=== PATIENT | female | born 1980 | race Caucasian/White ===

== ENCOUNTER 2018-01-02 01:53 | Emergency (ER) | payer OTHER ==
[2018-01-02] MEDS ORDERED: Acetaminophen/HYDROcodone 325-5 MG Tab PO ONE (02:15)
--- NOTE | 2018-01-02 02:19 | EDM.PDOC ---
ED HPI GENERAL MEDICAL PROBLEM - General Chief Complaint: Upper Extremity Injury/Pain Stated Complaint: SHOULDER PAIN Time Seen by Provider: 01/02/18 02:03 Source of Information: Reports: Patient, Family History Limitations: Reports: No Limitations - History of Present Illness INITIAL COMMENTS - FREE TEXT/NARRATIVE: This is a 37-year-old female. She comes to the ER [facility] because she is having left shoulder pain that she can't tolerate. Apparently she is moving sure she is been lifting these heavy totes for the last couple of days and now her left shoulder is killing her. She has a history of bursitis and tendinitis in the left shoulder. She has been trying to sleep this evening but the shoulder keeps waking her up. She has no history of trauma to the shoulder she is never seen in the supplier specialist for her shoulder and she's had no history of an MRI of her left shoulder. He denies any other acute symptoms other than her right shoulder is aching as well but not as bad as her left shoulder. She has a history of left carpal tunnel symptoms as well as left thumb trigger finger. Left Shoulder Pain Score (Numeric/FACES): 10 - Related Data Allergies Allergy/AdvReac Type Severity Reaction Status Date / Time No Known Allergies Allergy Verified 01/02/18 02:02 Home Meds: Home Meds . [No Known Home Meds] 01/02/18 [History] Past Medical History - Past Health History Medical/Surgical History: Denies Medical/Surgical History Social & Family History - Tobacco Use Smoking Status *Q: Current Every Day Smoker Years of Tobacco use: 20 Packs/Tins Daily: 0.5 Review of Systems - Review of Systems Review Of Systems: See Below Constitutional: Denies: Chills, Fever Eyes: Reports: No Symptoms Ears: Reports: No Symptoms Nose: Reports: No Symptoms Mouth/Throat: Reports: No Symptoms Respiratory: Denies: Shortness of Breath, Cough Cardiovascular: Denies: Chest Pain GI/Abdominal: Denies: Abdominal Pain Genitourinary: Reports: No Symptoms Musculoskeletal: Reports: Shoulder Pain Skin: Reports: No Symptoms Neurological: Reports: No Symptoms Psychiatric: Reports: No Symptoms ED EXAM, GENERAL - Physical Exam Exam: See Below Exam Limited By: No Limitations General Appearance: Alert, WD/WN, No Apparent Distress Eye Exam: Bilateral Eye: Normal Inspection Ears: Normal External Exam Nose: Normal Inspection Throat/Mouth: Normal Inspection, Normal Lips, Normal Voice, No Airway Compromise Head: Normocephalic Neck: Supple Respiratory/Chest: No Respiratory Distress GI/Abdominal: Non-Tender Back Exam: Full Range of Motion Extremities: Normal Inspection, Other (The patient states she can't really move her shoulder very well consider hurts too much, she has limited anterior and lateral reaching and she will not put her left hand over her shoulder) Neurological: Alert, Oriented Psychiatric: Normal Affect, Normal Mood Skin Exam: Warm, Dry Course - Vital Signs Last Recorded V/S: Last Vital Signs Temp 98.5 F 01/02/18 01:59 Pulse 85 01/02/18 01:59 Resp 18 01/02/18 01:59 BP 112/88 01/02/18 01:59 Pulse Ox 100 01/02/18 01:59 - Orders/Labs/Meds Orders: Active Orders 24 hr Category Date Time Status Shoulder Comp Lt [CR] Stat Exams 01/02/18 02:14 Taken Meds: Medications Discontinued Medications Generic Name Dose Route Start Last Admin Trade Name Lorena PRN Reason Stop Dose Admin Hydrocodone Bitart/Acetaminophen 1 tab 01/02/18 02:15 01/02/18 02:22 [place] 325-5 Mg PO 01/02/18 02:16 1 tab ONETIME ONE Administration - Radiology Interpretation Free Text/Narrative:: X-ray of the left shoulder does not reveal any acute bony changes - Re-Assessments/Exams Free Text/Narrative Re-Assessment/Exam: 01/02/18 03:22 I spoke to the patient regarding her x-ray results. I'm going to refer her to Dr. Diaz for her left shoulder symptoms or she can follow-up with her family doctor and if needed get an MRI as an outpatient. 01/02/18 03:25 The patient's pain is slightly improved since she's been here. I am not going to provide narcotics for this type of pain but suggested some Aleve 2 tablets twice a day and then to follow-up with her physician or Dr. Diaz for further evaluation and treatment. Departure - Departure Time of Disposition: 03:26 Disposition: Home, Self-Care 01 Condition: Fair Clinical Impression: Sprain of left shoulder Qualifiers: Encounter type: initial encounter Shoulder sprain type: unspecified sprain Qualified Code(s): S43.402A - Unspecified sprain of left shoulder joint, initial encounter Left shoulder pain Qualifiers: Chronicity: acute Qualified Code(s): M25.512 - Pain in left shoulder - Discharge Information *PRESCRIPTION DRUG MONITORING PROGRAM REVIEWED*: Not Applicable *COPY OF PRESCRIPTION DRUG MONITORING REPORT IN PATIENT CELY: Not Applicable Referrals: PCP,None [Primary Care Provider] - Forms: ED Department Discharge, ED Return to Work/School Form Additional Instructions: Use an ice pack or heating pad to help with the left shoulder soreness, get some Aleve and take 2 tablets twice a day with food, no more lifting of the tubs or totes until the shoulder pain is better, follow-up with Dr. Diaz for further evaluation and treatment and possibly an MRI of your left shoulder, return to the ER if needed - My Orders Last 24 Hours: My Active Orders 01/02/18 02:14 Shoulder Comp Lt [CR] Stat - Assessment/Plan Last 24 Hours: My Active Orders 01/02/18 02:14 Shoulder Comp Lt [CR] Stat
--- NOTE | 2018-01-03 10:01 | CR ---
Left shoulder: Three views of the left shoulder were obtained. Comparison: No previous study. Glenohumeral and acromioclavicular joints are within normal limits. No fracture or other abnormality is seen. Impression: 1. No abnormality is identified on three-view left shoulder study. Diagnostic code #1
== END 2018-01-02 03:35 | disposition home or self-care (01) ==
LOC: JD.ED 01:53
DX: S43.402A Unspecified sprain of left shoulder joint, initial encounter (principal); F17.210 Nicotine dependence, cigarettes, uncomplicated; X50.0XXA Overexertion from strenuous movement or load, initial encounter
CPT/HCPCS: 73030; 99283; A9270

== ENCOUNTER 2018-03-10 09:37 | Emergency (ER) | payer OTHER ==
[2018-03-10] MEDS ORDERED: Albuterol/Ipratropium 3.0-0.5 MG/3 ML Neb Soln NEB ONE (09:49)
[2018-03-10] MEDS ORDERED: Albuterol/Ipratropium 3.0-0.5 MG/3 ML Neb Soln ONE (09:50)
[2018-03-10] MEDS ORDERED: Sodium Chloride 0.9% 10 ML Syringe FLUSH PRN (09:51)
[2018-03-10] MEDS ORDERED: methylPREDNISolone Sodium Succinate 125 MG/2 ML SDV IVPUSH ONE (09:51)
--- NOTE | 2018-03-10 11:02 | CR ---
Chest: Portable view of the chest was obtained. Comparison: No prior chest x-ray. Heart size and mediastinum are normal. Lungs are clear. Bony structures are grossly intact. Impression: 1. Nothing acute is seen on portable chest x-ray. Diagnostic code #1
[2018-03-10] MEDS ORDERED: Albuterol 0.083% 2.5 MG/3 ML Neb Soln NEB ONE ×2 (11:20→12:36)
--- NOTE | 2018-03-10 13:02 | EDM.PDOC ---
ED HPI GENERAL MEDICAL PROBLEM - General Chief Complaint: Respiratory Problem Stated Complaint: SOB Time Seen by Provider: 03/10/18 09:47 Source of Information: Reports: Patient, RN Notes Reviewed - History of Present Illness INITIAL COMMENTS - FREE TEXT/NARRATIVE: 37-year-old female comes in with severe shortness of breath. She's had cough worsening shortness of breath for the past several days which became even more severe this morning. Her cough is been occasionally productive of colored phlegm. She does have history of asthma. She has had some chills but no fever. Mild nasal and sinus congestion. She denies sore throat. She does have a nebulizer but is out of her albuterol medication. Chest Pain Score (Numeric/FACES): 7 - Related Data Allergies Allergy/AdvReac Type Severity Reaction Status Date / Time No Known Allergies Allergy Verified 03/10/18 09:48 Home Meds: Home Meds . [No Known Home Meds] 01/02/18 [History] Past Medical History - Past Health History Medical/Surgical History: Denies Medical/Surgical History Respiratory History: Reports: Asthma - Infectious Disease History Infectious Disease History: Reports: Chicken Pox - Past Surgical History Musculoskeletal Surgical History: Reports: Other (See Below) Other Musculoskeletal Surgeries/Procedures:: club foot surgery as a child Social & Family History - Tobacco Use Smoking Status *Q: Current Every Day Smoker Years of Tobacco use: 20 Packs/Tins Daily: 0.5 Used Tobacco, but Quit: No - Caffeine Use Caffeine Use: Reports: Coffee - Recreational Drug Use Recreational Drug Use: No ED ROS GENERAL - Review of Systems Review Of Systems: See Below Constitutional: Reports: Chills. Denies: Fever HEENT: Reports: Rhinitis, Sinus Problem (Mild mild). Denies: Throat Pain Respiratory: Reports: Shortness of Breath, Wheezing (Severe), Cough, Sputum Cardiovascular: Reports: Chest Pain GI/Abdominal: Denies: Abdominal Pain (With coughing), Nausea, Vomiting Musculoskeletal: Reports: No Symptoms Skin: Reports: No Symptoms Neurological: Reports: No Symptoms ED EXAM, GENERAL - Physical Exam Exam: See Below General Appearance: Alert, Moderate Distress Eye Exam: Bilateral Eye: PERRL Throat/Mouth: Normal Inspection, Normal Oropharynx Head: Atraumatic Neck: Supple, Full Range of Motion. No: Lymphadenopathy (L), Lymphadenopathy (R ) Respiratory/Chest: Respiratory Distress (Moderate tachypnea and wheezing), Wheezing. No: Rales, Rhonchi Cardiovascular: Regular Rate, Rhythm Back Exam: No: CVA Tenderness (L), CVA Tenderness (R) Extremities: Normal Inspection. No: Pedal Edema, Leg Pain Neurological: Alert, Oriented, No Motor/Sensory Deficits Skin Exam: Warm, Dry, Normal Color, No Rash Course - Vital Signs Last Recorded V/S: Last Vital Signs Temp 98.6 F 03/10/18 09:45 Pulse 100 03/10/18 13:15 Resp 17 03/10/18 13:15 BP 101/71 03/10/18 13:15 Pulse Ox 92 L 03/10/18 13:15 - Orders/Labs/Meds Orders: Active Orders 24 hr Category Date Time Status Peripheral IV Care [RC] . DIRECTED Care 03/10/18 09:51 Active RT Aerosol Therapy [RC] ASDIRECTED Care 03/10/18 09:49 Active RT Aerosol Therapy [RC] ASDIRECTED Care 03/10/18 11:20 Active RT Aerosol Therapy [RC] ASDIRECTED Care 03/10/18 12:36 Active Peripheral IV Insertion Adult [OM.PC] Stat Oth 03/10/18 09:51 Ordered Meds: Medications Discontinued Medications Generic Name Dose Route Start Last Admin Trade Name Lorena PRN Reason Stop Dose Admin Albuterol 2.5 mg 03/10/18 11:20 03/10/18 11:33 Proventil Neb Soln NEB 03/10/18 11:21 2.5 mg ONETIME ONE Administration Albuterol 2.5 mg 03/10/18 12:36 03/10/18 13:04 Proventil Neb Soln NEB 03/10/18 12:37 2.5 mg ONETIME ONE Administration Albuterol/Ipratropium 3 ml 03/10/18 09:49 03/10/18 09:56 Duoneb 3.0-0.5 Mg/3 Ml NEB 03/10/18 09:50 3 ml ONETIME ONE Administration Albuterol/Ipratropium Confirm 03/10/18 09:50 03/10/18 09:56 Duoneb 3.0-0.5 Mg/3 Ml Administered 03/10/18 09:51 Not Given Dose 3 ml .ROUTE .STK-MED ONE Methylprednisolone Sodium Succinate 125 mg 03/10/18 09:51 03/10/18 10:12 Solu-Medrol IVPUSH 03/10/18 09:52 125 mg ONETIME ONE Administration Sodium Chloride 10 ml 03/10/18 09:51 03/10/18 10:12 Saline Flush FLUSH 10 ml ASDIRECTED PRN Administration Keep Vein Open - Re-Assessments/Exams Free Text/Narrative Re-Assessment/Exam: 03/10/18 15:23 Patient did eventually get better with DuoNeb followed by a couple of albuterol nebs, we did give Solu-Medrol IV, chest x-ray did not show any infiltrate, discharge instructions as documented. Departure - Departure Time of Disposition: 12:57 Disposition: Home, Self-Care 01 Clinical Impression: Acute asthma, Bronchitis - Discharge Information Instructions: Asthma, Adult, [id number], Acute Bronchitis, Adult Referrals: PCP,None [Primary Care Provider] - Forms: ED Department Discharge, ED Return to Work/School Form Additional Instructions: Zithromax antibiotic as prescribed, prednisone as prescribed, use nebulizer every 4-6 hours as needed for wheezing or difficulty breathing, follow-up clinic if not much better within 3-5 days as expected, return to ED as needed if symptoms worsening in any way. - My Orders Last 24 Hours: My Active Orders 03/10/18 09:49 RT Aerosol Therapy [RC] ASDIRECTED 03/10/18 09:51 Peripheral IV Care [RC] . DIRECTED Peripheral IV Insertion Adult [OM.PC] Stat 03/10/18 11:20 RT Aerosol Therapy [RC] ASDIRECTED 03/10/18 12:36 RT Aerosol Therapy [RC] ASDIRECTED - Assessment/Plan Last 24 Hours: My Active Orders 03/10/18 09:49 RT Aerosol Therapy [RC] ASDIRECTED 03/10/18 09:51 Peripheral IV Care [RC] . DIRECTED Peripheral IV Insertion Adult [OM.PC] Stat 03/10/18 11:20 RT Aerosol Therapy [RC] ASDIRECTED 03/10/18 12:36 RT Aerosol Therapy [RC] ASDIRECTED
== END 2018-03-10 13:20 | disposition home or self-care (01) ==
LOC: JD.ED 09:37
DX: J45.901 Unspecified asthma with (acute) exacerbation (principal); F17.210 Nicotine dependence, cigarettes, uncomplicated
CPT/HCPCS: 71045; 94640; 96374; 99285; J2930; J7050; 99284; J7620-GY